=== PATIENT | female | born 1990 | race Caucasian/White ===

== ENCOUNTER 2017-04-14 02:26 | Emergency (ER) | payer SELFPAY ==
[~2017-04-14] VITALS: Ht 157.5 cm; Wt 69.5 kg
[2017-04-14 03:07] LABS: HEMATOCRIT 38.3 % (37.0-47.0); HEMOGLOBIN 12.7 g/dl (12.5-16.0); MEAN CELL VOLUME 89 fl (80.0-100.0); MEAN CORPUSCULAR HEMOGLOBIN 29 pg (27.0-31.0); MEAN CORPUSCULAR HGB CONC 33 g/dl (33.0-37.0); MEAN PLATELET VOLUME 10.8 fl (7.4-10.4); PLATELET COUNT 185 K/mm3 (130-400); RED BLOOD COUNT 4.33 M/mm3 (4.10-5.30); WHITE BLOOD COUNT 10.1 K/mm3 (4.8-10.8)
[2017-04-14 03:11] LABS: COLLECTION METHOD CLEAN CATCH
[2017-04-14 03:11] LABS: ADD PATHOLOGY DIFF REVIEW NO
[2017-04-14 03:19] LABS: MUCOUS Present /lpf; PH 6 (5-8); URINE APPEARANCE Cloudy; URINE BACTERIA Moderate /hpf; URINE BILIRUBIN Negative (NEGATIVE); URINE BLOOD 3+ (NEGATIVE); URINE COLOR Amber; URINE GLUCOSE Negative (NEGATIVE); URINE KETONE Trace (NEGATIVE); URINE LEUKOCYTE ESTERASE 2+ (NEGATIVE); URINE PROTEIN(semi-quant) 3+ (NEGATIVE); URINE RBC >50 /hpf; URINE UROBILINOGEN >=4.0 mg/dL (NEGATIVE); URINE WBC >50 /hpf
[2017-04-14 03:22] LABS: ALBUMIN 4.3 gm/dL (3.5-5.0); BAND 18 % (0-10); BILIRUBIN,TOTAL 0.9 mg/dL (0.0-1.0); CALCIUM 9.2 mg/dL (8.4-10.2); CREATININE, serum 0.64 mg/dL (0.52-1.25); LYMPHOCYTE 3 % (20.0-51.0); NEUTROPHILS 71 % (42.0-75.2); PLATELET ESTIMATE NORMAL (NORMAL); POTASSIUM 3.1 mmol/L (3.4-5.0); TOTAL CELLS COUNTED 100; TOTAL PROTEIN 8.3 gm/dL (6.4-8.2)
[2017-04-14] MEDS ORDERED: CIPRO 500MG TA500 MG PO (03:39)
[2017-04-14] MEDS ORDERED: PHENERGAN 25 TA25 MG PO (03:40)
[2017-04-14 04:17] VITALS: BP 107/77; PULSE 97; TEMP 98.7
== END 2017-04-14 04:19 | disposition home or self-care (01) ==
LOC: COL.ER 02:26
PROVIDERS: Emergency Medicine
DX: N12 Tubulo-interstitial nephritis, not specified as acute or chronic (principal); R74.0 Nonspecific elevation of levels of transaminase and lactic acid dehydrogenase [LDH]
CPT/HCPCS: J0696; J1885; J2405; J7030